=== PATIENT | male | born 1945 | race Hispanic/Latino ===

== ENCOUNTER → 2019-11-21 | Day surgery (SDC) | payer MEDICARE, OTHER ==
[2019-11-17 09:33] LABS: BASOPHILS # (AUTO) 0.1 (0.0-0.1); BASOPHILS % 0.8 % (0.0-1.0); EOSINOPHILS % 16.8 % (0.0-6.0); HEMATOCRIT 40.5 % (38.2-49.6); HEMOGLOBIN 13.2 g/dL (14.0-18.0); LYMPHOCYTES # (AUTO) 2.3 (1.0-3.2); LYMPHOCYTES % 37.3 % (18.0-39.1); MEAN CORPUSCULAR HGB CONC 32.6 g/dL (31-35); MEAN CORPUSCULAR VOLUME 85.8 fL (81-99); MONOCYTES # (AUTO) 0.4 (0.2-0.8); MONOCYTES % 6.5 % (4.4-11.3); NEUTROPHILS # (AUTO) 2.4 (2.1-6.9); NEUTROPHILS % 38.3 % (38.7-80.0); PLATELET COUNT 192 x10e3/uL (140-360); RED BLOOD COUNT 4.72 x10e6/uL (4.3-5.7); RED CELL DISTRIBUTION WIDTH 13.5 % (11.7-14.4)
[2019-11-17 09:53] LABS: ALANINE AMINOTRANSFERASE 19 IU/L (0-55); ALBUMIN 3.9 g/dL (3.5-5.0); ALBUMIN/GLOBULIN RATIO 1.2 (0.8-2.0); ALKALINE PHOSPHATASE 107 IU/L (40-150); ANION GAP 14.2 mmol/L (8-16); BLOOD UREA NITROGEN 12 mg/dL (7-26); BUN/CREATININE RATIO 11 (6-25); CALCIUM 9.1 mg/dL (8.4-10.2); CARBON DIOXIDE 25 mmol/L (22-29); CHLORIDE 105 mmol/L (98-107); CREATININE, SERUM 1.08 mg/dL (0.72-1.25); EST GLOMERULAR FILTRATION RATE > 60 ML/MIN (60-); GLUCOSE 202 mg/dL (74-118); POTASSIUM 4.2 mmol/L (3.5-5.1); SODIUM 140 mmol/L (136-145)
[2019-11-21] VITALS (8 sets, daily range): BP systolic 152–172; BP diastolic 60–92
[~2019-11-21] VITALS: Ht 170.2 cm; Wt 80.7 kg
[~2019-11-21] MED LIST: ALPRAZOLAM 0.5 MG TAB ONE; DIPHENHYDRAMINE HCL 25 MG CAP ONE; FENTANYL CITRATE/PF 100MCG/2 ML INJ ONE; HEPARIN SOD/SOD CHLORIDE 2,000 ML ONE; IOPAMIDOL 370 MG/ML 200 ML INFUS..BTL INJ ONE; LIDOCAINE HCL 2% LOCAL 20 ML VIAL ONE; MIDAZOLAM HCL 2 MG/2 ML VIAL ONE; SODIUM CHLORIDE 0.9% 1000ML 1,000 ML ONE; VERAPAMIL HCL 2.5 MG/ML 2 ML VIAL ONE
--- NOTE | 2019-11-21 16:00 | NUR ---
1800pm RADIAL COMPRESSION REMOVAL NOTE: Initial Cuff volume 12 cc 1800pm -2cc Removed No hematoma/bleeding noted with normal neurovascular function. 1815pm -5cc Removed No hematoma/ bleeding noted with normal neurovascular function. 1830pm -5cc Removed No hematoma/bleeding noted with normal neurovascular function. Air removal completed. Stasis achieved sterile 2x2,Tegaderm, Coban dressing No hematoma, bleeding noted with normal neurovascular function. Wrist splint in place. Pt instructed on POC. Ds/Rn
--- NOTE | 2019-11-21 17:00 | NUR ---
1700 pm RECEIVING NOTE RADIOLOGY RESIDENT RECOVERY DEPT.Bedside report received from Inder LAKHANI. Identifierx2. Alert oriented and appropriate, PERRLA, respirations even and unlabored to room air. Pulses x4 extremities equal and strong. TR band ok to decrease at 6pm. Language line used for dc planing Mckenzie #[id number]. NO gross issues pain,pallor pressure or dysrhythmia. Skin warm and dry integrity appears D/I. IV 20g to Rt FA presents healthy w/o s/s of infiltration or complaint. Abdomen soft and supple. pt offered toileting, denies need to urinate or defecate. No personal affects with patient. Family at bedside.. Pt and family verbalizes understanding of POC. Currently w/o complaint of pain or need. ds/victor manuel
--- NOTE | 2019-11-21 18:45 | NUR ---
1845pm DISH UP PERSON RECOVERY DISCHARGE NURSING NOTE Pt meets DC criteria. Rt Tr band assessed for s/s of complication and presence of hematoma. Skin warm, dry, no discolor, and pulses present. IV removed from left FA. Distal tip appears intact. VS WNL. Pt denies pain, sob, or need at this time. Family at BS . Review of discharge paperwork and follow up instructions. Interpretor used [employer] language line #[id number] and re iterated by daughter who speaks emirati about f/o care and bleeding precautions. All verbalized understanding. Pt to wheelchair and transported to front of hospital. Transferred to private vehicle under own strength w/o incident with DC paperwork in hand. - ds/rn
--- NOTE | 2019-11-21 19:58 | Operative Report ---
DATE OF PROCEDURE: 11/21/2019 SURGEON: Tavares Fink MD INDICATIONS: Coronary artery disease, abnormal stress test. PROCEDURES PERFORMED: 1. Ultrasound-guided access in the right radial artery with sheath placement. 2. Conscious sedation administration, hemodynamic, neurological monitoring and recovery by operations label clerk RN, supervision by , 35 minutes. 3. Left heart catheterization, selective coronary angiography for deployment of right wrist TR band. COMPLICATIONS: None. BLOOD LOSS: Minimal. RECOMMENDATIONS: Medical therapy. DESCRIPTION OF PROCEDURE: Access obtained in the right radial artery using ultrasound guidance, a 5-Mongolian sheath was placed. Coronary angiography demonstrated mild coronary artery disease. 20% to 30% luminal stenosis in all coronary vessels. LV end-diastolic pressure of 10. No gradient across the aortic valve on pullback. No intervention necessary. Right wrist TR band applied. The patient discharged home same day. Tavares Fink MD KSB/MODL /[id number]
== END | disposition home or self-care (01) ==
LOC: CATH LAB 15:08
PROVIDERS: ATTEND Internal Medicine Interventional Cardiology
DX: I25.119 Atherosclerotic heart disease of native coronary artery with unspecified angina pectoris (principal); R94.39 Abnormal result of other cardiovascular function study; Z01.812 Encounter for preprocedural laboratory examination; Z11.59 Encounter for screening for other viral diseases
CPT/HCPCS: 36415; 76937; 80053; 85025; 87635; 93458; C1769 ×2; C1887; J2001; J2250; J3010; J7030; Q9967; 99152; U0002